=== PATIENT | male | born 1970 | race Caucasian/White ===

== ENCOUNTER → 2020-05-02 | Outpatient (CLI) | payer OTHER ==
[~2020-05-02] MED LIST: ASPI-496 PO; LISI-170 PO; LOSARTAN; LOVA20TA2 PO
== END | disposition home or self-care (01) ==
LOC: RAD 11:43
PROVIDERS: ATTEND Nurse Practitioner Family
DX: S46.212A Strain of muscle, fascia and tendon of other parts of biceps, left arm, initial encounter (principal); M25.522 Pain in left elbow; X58.XXXA Exposure to other specified factors, initial encounter; Y93.89 Activity, other specified; Y92.89 Other specified places as the place of occurrence of the external cause; Y99.8 Other external cause status